=== PATIENT | male | born 1955 | race Caucasian/White ===

== ENCOUNTER 2017-06-07 16:50 | Emergency (ER) | payer OTHER ==
[~2017-06-07] VITALS: Ht 180.3 cm; Wt 85.3 kg
--- NOTE | 2017-06-07 17:00 | NUR ---
[facility]RA FROM HOME DT TO UNWITNESED SYNCOPAL EPISODE. PATIENT IS AAO4, APPEARS IN MILD DSITRESS, SATING 80S ON ROOM AIR,. PATIENT'S TEMP IS 99.2. PATIENT DENIES HITTING HEAD. NO OTHER COMPLAINT AT THIS TIME,. GOWNED PT AND CONNCTED PT TO TELE MONITOR,.
--- NOTE | 2017-06-07 17:20 | NUR ---
MD CORRALES,AN AT BS
--- NOTE | 2017-06-07 17:38 | NUR ---
EKG ON GOING
--- NOTE | 2017-06-07 17:38 | NUR ---
MEDICAL [employer]URANCE CODING SPECIALIST AT
[2017-06-07 17:50] LABS: BASOPHILS % (AUTO) 0.5 % (0.0-2.0); EOSINOPHILS # (AUTO) 0.3 /CMM (0.0-0.7); EOSINOPHILS % (AUTO) 2.8 % (0.0-6.0); HEMATOCRIT 34 % (39-51); HEMOGLOBIN 11.1 g/dL (13.5-17.5); LYMPHOCYTES # (AUTO) 0.8 /CMM (0.8-4.8); LYMPHOCYTES % (AUTO) 8.9 % (20.0-44.0); MEAN CORPUSCULAR HEMOGLOBIN 32 PG (26.0-33.0); MEAN CORPUSCULAR HGB CONC 32 g/dl (31.0-36.0); MEAN CORPUSCULAR VOLUME 98 fL (80-96); MONOCYTES # (AUTO) 0.6 /CMM (0.1-1.30); MONOCYTES % (AUTO) 6.8 % (2.0-12.0); NEUTROPHILS # (AUTO) 7.6 /CMM (1.8-8.9); PLATELET COUNT (AUTO) 124 /CMM (150-450); RDW COEFFICIENT OF VARIATION 21.3 (11.5-15.0); RED BLOOD CELL COUNT(AUTO) 3.48 MIL/uL (4.5-6.0); WHITE BLOOD COUNT (AUTO) 9.3 K/uL (4.3-11.0)
[2017-06-07 18:00] LABS: CALCIUM, SERUM 8.7 mg/dL (8.5-10.1); CREATININE 6.9 mg/dL (0.6-1.3); POTASSIUM 4.7 mmol/L (3.5-5.1)
--- NOTE | 2017-06-07 18:02 | NUR ---
PATIENT IS ANURIC DT HD
[2017-06-07 18:03] LABS: INR 1.11 (0.87-1.13); PROTHROMBIN TIME 11.5 SECS (9.5-12.7)
[2017-06-07 18:06] LABS: ALBUMIN 1.9 g/dL (3.4-5.0); BILIRUBIN,DIRECT 0.4 mg/dL (0.0-0.2); BILIRUBIN,TOTAL 0.9 mg/dL (0.2-1.0); TOTAL PROTEIN, SERUM 8.7 g/dL (6.4-8.2)
[2017-06-07 18:07] LABS: TROPONIN I 0.025 ng/mL (0.00-0.056)
--- NOTE | 2017-06-07 19:10 | NUR ---
REPORT GIVEN TO PENNY SÁNCHEZ FOR PETTY
--- NOTE | 2017-06-07 19:20 | NUR ---
RECEIVED PATIENT IN BED, LETHARGIC, RESPONSIVE TO VERBAL AND TACTILE STIMULI AND FOLLOW SIMPLE COMMANDS. SINUS TACHY ON THE MONITOR AT 112. CONTINUOUS VS AND POX MONITORING.
--- NOTE | 2017-06-07 20:00 | NUR ---
DR CASANOVA AT BEDSIDE TALKING TO THE PATIENT AND FAMILY.
[2017-06-07] MEDS ORDERED: IOHEXOL-300 100 ML VIAL IV ONE (20:12)
[2017-06-07] MEDS ORDERED: IV NS 0.9% 250 ML IV ONE (20:12)
--- NOTE | 2017-06-07 21:00 | NUR ---
patient had a 1 bowel movement at this time, perineal care provided.
--- NOTE | 2017-06-07 21:20 | NUR ---
CALLED [facility].
--- NOTE | 2017-06-07 21:38 | NUR ---
[facility] CALLED WITH TRANSFER INFO - TRANSFER TO [facility] - ACCEPTING DR RIVERS - REPORT #:
--- NOTE | 2017-06-07 21:56 | NUR ---
Report given to Rosita FRANCIS at [facility] for toby.
[2017-06-07 22:10] LABS: SERUM AMMONIA 30 umol/L (11-32)
[2017-06-07 22:13] LABS: CREATINE KINASE, TOTAL 46 U/L (39-308)
[2017-06-07 22:56] VITALS: BP 132/70
--- NOTE | 2017-06-07 22:57 | NUR ---
Endorsed care to [facility] staff. Patient remained responsive. vss. nad noted. at bedside.
== END 2017-06-07 22:58 | disposition short-term general hospital (02) ==
LOC: ER 16:51
DX: R55 Syncope and collapse (principal); E11.9 Type 2 diabetes mellitus without complications; I10 Essential (primary) hypertension; I25.10 Atherosclerotic heart disease of native coronary artery without angina pectoris; I31.3 Pericardial effusion (noninflammatory); I70.0 Atherosclerosis of aorta; J90 Pleural effusion, not elsewhere classified; K21.9 Gastro-esophageal reflux disease without esophagitis; Z90.49 Acquired absence of other specified parts of digestive tract; Z93.3 Colostomy status; Z99.2 Dependence on renal dialysis
CPT/HCPCS: 36415; 70450; 71010; 72125; 74160; 80048; 80076; 82140; 82550; 82962; 83605; 84484; 85025; 85730; 93005; 99285; A4606; G0480; J7050; Q9967; Z7610

== ENCOUNTER 2017-11-12 05:48 | Inpatient (IN) | payer OTHER ==
[2017-11-12] MEDS ORDERED: IV NS 0.9% 1,000 ML BAG IV ONE (06:00)
[2017-11-12] MEDS ORDERED: ACETAMINOPHEN 650 MG/SUPP.RECT RC ONE ×2 (06:00→07:17)
[2017-11-12] MEDS ORDERED: CEFEPIME 1 GM in IV D5W 50 ML IV ONE (06:00)
[2017-11-12] MEDS ORDERED: VANCOMYCIN 1 GM in IV D5W 250 ML IV ONE (06:00)
[2017-11-12] MEDS ORDERED: PROPOFOL 100 ML ONE (06:22)
[2017-11-12] MEDS ORDERED: SUCCINYLCHOLINE CHLORIDE 20 MG/ML VIAL IV ONE ×2 (06:30→11:46)
[2017-11-12] MEDS ORDERED: PROPOFOL 100 ML IV PRN (06:30)
[2017-11-12] MEDS ORDERED: ETOMIDATE 2 MG/ML VIAL IV ONE ×2 (06:30→11:46)
[2017-11-12] MEDS ORDERED: MIDAZOLAM HCL 5 MG/5ML VIAL ONE ×2 (06:30→07:40)
[2017-11-12] MEDS ORDERED: MIDAZOLAM HCL 100 MG in IV NS 0.9% 80 ML IV PRN (07:00)
[2017-11-12] MEDS ORDERED: MIDAZOLAM HCL 5 MG/5ML VIAL IV ONE ×2 (07:00→08:00)
[2017-11-12] MEDS ORDERED: ACETAMINOPHEN 120 MG/SUPP.RECT RC ONE ×2 (07:18→07:19)
[2017-11-12] MEDS: IV NS 0.9% 1,000 ML IV PRN ×2 (10:00→22:04)
[2017-11-12] MEDS ORDERED: MAG HYDROX/AL HYDROX/SIMETH 30 ML UDC PO PRN (10:00)
[2017-11-12] MEDS ORDERED: ONDANSETRON HCL/PF 4 MG/2 ML VIAL IVP PRN (10:00)
[2017-11-12] MEDS ORDERED: HYDROCODONE/APAP 5/325MG 1 EACH TABLET PO PRN (10:00)
[2017-11-12] MEDS ORDERED: MAGNESIUM HYDROXIDE 30 ML UDC PO PRN (10:00)
[2017-11-12] MEDS ORDERED: ACETAMINOPHEN 325 MG TABLET PO PRN (10:00)
[2017-11-12] MEDS ORDERED: FEE PK DOSING 1 MIN EA MC ONE (10:16)
[2017-11-12] MEDS: NOREPINEPHRINE 16 MG in IV D5W 500 ML IV PRN (11:50)
[2017-11-12] MEDS: PROPOFOL 100 ML IV PRN ×2 (11:51→22:04)
[2017-11-12] MEDS ORDERED: HYDR5TAB PO (12:08)
[2017-11-12] MEDS ORDERED: HYDR10TA PO (12:08)
[2017-11-12] MEDS ORDERED: ALLO100T PO (12:08)
[2017-11-12] MEDS ORDERED: NORT25CA PO (12:08)
[2017-11-12] MEDS: PIPERACILLIN /TAZOBACTAM 2.25 G in IV NS 0.9% 50 ML IV SCH ×2 (16:52→22:04)
[2017-11-13] MEDS: PROPOFOL 100 ML IV PRN ×3 (05:18→19:29)
[2017-11-13] MEDS ORDERED: CEFEPIME 1 GM in IV D5W 50 ML IV SCH (06:00)
[2017-11-13] MEDS: PIPERACILLIN /TAZOBACTAM 2.25 G in IV NS 0.9% 50 ML IV SCH ×3 (06:00→22:13)
[2017-11-13] MEDS: SILVER SULFADIAZINE CREAM 25 GM TUBE TP SCH (10:58)
[2017-11-13] MEDS: NOREPINEPHRINE 16 MG in IV D5W 500 ML IV PRN (10:58)
[2017-11-13] MEDS: IV NS 0.9% 1,000 ML IV PRN (12:41)
[2017-11-13] MEDS ORDERED: VANCOMYCIN 1 GM in IV NS 0.9% 250 ML IV ONE (17:00)
[2017-11-13] MEDS: Z GUARD REMEDY 2 OZ OINT TP PRN (17:25)
[2017-11-13] MEDS: HYDROCORTISONE 5 MG TABLET PO SCH (17:37)
[2017-11-13] MEDS: NORTRIPTYLINE HCL 25 MG CAPSULE PO SCH (21:03)
[2017-11-13] MEDS: MUPIROCIN OINT 2% 22 GM TUBE SCH (21:03)
[2017-11-14] MEDS: IV NS 0.9% 1,000 ML IV PRN ×2 (04:33→17:11)
[2017-11-14] MEDS: PROPOFOL 100 ML IV PRN ×2 (04:34→15:14)
[2017-11-14] MEDS: PIPERACILLIN /TAZOBACTAM 2.25 G in IV NS 0.9% 50 ML IV SCH ×3 (06:03→22:00)
[2017-11-14] MEDS: ALLOPURINOL 100 MG TABLET PO SCH (08:29)
[2017-11-14] MEDS: SILVER SULFADIAZINE CREAM 25 GM TUBE TP SCH (08:30)
[2017-11-14] MEDS: MUPIROCIN OINT 2% 22 GM TUBE SCH (08:30)
[2017-11-14] MEDS ORDERED: HYDROCORTISONE 10 MG TABLET PO SCH (09:00)
[2017-11-14] MEDS: HYDROCORTISONE 5 MG TABLET PO SCH ×3 (10:49→17:10)
[2017-11-14] MEDS ORDERED: DESMOPRESSIN IV ONE (13:00)
[2017-11-14] MEDS ORDERED: NS 0.9% IV ONE (13:00)
[2017-11-14] MEDS: NOREPINEPHRINE 16 MG in IV D5W 500 ML IV PRN (13:22)
[2017-11-14] MEDS: NORTRIPTYLINE HCL 25 MG CAPSULE PO SCH (22:00)
[2017-11-15] MEDS: PROPOFOL 100 ML IV PRN (03:38)
[2017-11-15] MEDS: IV NS 0.9% 1,000 ML IV PRN ×2 (05:17→23:56)
[2017-11-15] MEDS: PIPERACILLIN /TAZOBACTAM 2.25 G in IV NS 0.9% 50 ML IV SCH ×3 (06:01→22:29)
[2017-11-15] MEDS: HYDROCORTISONE 5 MG TABLET PO SCH ×2 (08:52→18:05)
[2017-11-15] MEDS: MUPIROCIN OINT 2% 22 GM TUBE TP SCH ×2 (08:55→15:53)
[2017-11-15] MEDS: ALLOPURINOL 100 MG TABLET PO SCH (08:55)
[2017-11-15] MEDS: SILVER SULFADIAZINE CREAM 25 GM TUBE TP SCH (08:55)
[2017-11-15] MEDS ORDERED: EPOETIN ALFA (10,000 UNIT) 10,000 UNIT/ML VIAL SQ ONE (09:00)
[2017-11-15] MEDS: VANCOMYCIN 500 MG in IV D5W 100 ML IV PRN (21:13)
[2017-11-15] MEDS: NORTRIPTYLINE HCL 25 MG CAPSULE PO SCH (22:29)
[2017-11-15] MEDS: NOREPINEPHRINE 16 MG in IV D5W 500 ML IV PRN (23:56)
[2017-11-16] MEDS: MUPIROCIN OINT 2% 22 GM TUBE TP SCH ×3 (03:37→15:07)
[2017-11-16] MEDS: PIPERACILLIN /TAZOBACTAM 2.25 G in IV NS 0.9% 50 ML IV SCH ×2 (06:02→15:07)
[2017-11-16] MEDS: IV NS 0.9% 1,000 ML IV PRN ×2 (08:20→17:49)
[2017-11-16] MEDS: HYDROCORTISONE 5 MG TABLET PO SCH ×2 (08:20→17:47)
[2017-11-16] MEDS: ALLOPURINOL 100 MG TABLET PO SCH (08:20)
[2017-11-16] MEDS: SILVER SULFADIAZINE CREAM 25 GM TUBE TP SCH (08:21)
[2017-11-16] MEDS: PROPOFOL 100 ML IV PRN (18:20)
[2017-11-16] MEDS: NOREPINEPHRINE 16 MG in IV D5W 500 ML IV PRN (19:14)
[2017-11-16] MEDS ORDERED: MEROPENEM 1 G in IV NS 0.9% 100 ML IV SCH (21:00)
[2017-11-16] MEDS: NORTRIPTYLINE HCL 25 MG CAPSULE PO SCH (21:27)
[2017-11-16] MEDS ORDERED: MEROPENEM 500 MG VIAL IV ONE (21:35)
[2017-11-16] MEDS: MEROPENEM 500 MG in IV NS 0.9% 50 ML IV SCH (21:39)
[2017-11-17] MEDS: MUPIROCIN OINT 2% 22 GM TUBE TP SCH ×3 (04:04→14:47)
[2017-11-17] MEDS: PROPOFOL 100 ML IV PRN ×5 (05:14→22:28)
[2017-11-17] MEDS: SILVER SULFADIAZINE CREAM 25 GM TUBE TP SCH (08:35)
[2017-11-17] MEDS: ALLOPURINOL 100 MG TABLET PO SCH (10:27)
[2017-11-17] MEDS: HYDROCORTISONE 5 MG TABLET PO SCH ×2 (10:27→17:20)
[2017-11-17] MEDS: MEROPENEM 500 MG in IV NS 0.9% 50 ML IV SCH ×2 (10:41→21:00)
[2017-11-17] MEDS: IV NS 0.9% 1,000 ML IV PRN (13:17)
[2017-11-17] MEDS: VANCOMYCIN 500 MG in IV D5W 100 ML IV PRN (14:44)
[2017-11-17] MEDS: NOREPINEPHRINE 16 MG in IV D5W 500 ML IV PRN (18:14)
[2017-11-17] MEDS: NORTRIPTYLINE HCL 25 MG CAPSULE PO SCH (21:00)
[2017-11-18] MEDS: MUPIROCIN OINT 2% 22 GM TUBE TP SCH ×3 (04:00→16:21)
[2017-11-18] MEDS: PROPOFOL 100 ML IV PRN (06:42)
[2017-11-18] MEDS: HYDROCORTISONE 5 MG TABLET PO SCH ×2 (08:57→17:17)
[2017-11-18] MEDS: MEROPENEM 500 MG in IV NS 0.9% 50 ML IV SCH ×2 (08:57→21:45)
[2017-11-18] MEDS: ALLOPURINOL 100 MG TABLET PO SCH (08:57)
[2017-11-18] MEDS: SILVER SULFADIAZINE CREAM 25 GM TUBE TP SCH (08:57)
[2017-11-18] MEDS: IV NS 0.9% 1,000 ML IV PRN (10:31)
[2017-11-18] MEDS ORDERED: Magnesium 1GM/D5W 100ML PREMIX 100 ML IV SCH (13:30)
[2017-11-18] MEDS: NOREPINEPHRINE 16 MG in IV D5W 500 ML IV PRN (17:18)
[2017-11-18] MEDS: NORTRIPTYLINE HCL 25 MG CAPSULE PO SCH (21:46)
[2017-11-19] MEDS: MUPIROCIN OINT 2% 22 GM TUBE TP SCH ×3 (04:12→16:03)
[2017-11-19] MEDS: IV NS 0.9% 1,000 ML IV PRN (07:47)
[2017-11-19] MEDS: HYDROCORTISONE 5 MG TABLET PO SCH ×2 (08:41→17:17)
[2017-11-19] MEDS: ALLOPURINOL 100 MG TABLET PO SCH (08:41)
[2017-11-19] MEDS: MEROPENEM 500 MG in IV NS 0.9% 50 ML IV SCH ×2 (08:41→21:06)
[2017-11-19] MEDS: SILVER SULFADIAZINE CREAM 25 GM TUBE TP SCH (08:43)
[2017-11-19] MEDS: RENAL NOVASOURCE 1,000 ML BOTTLE GT PRN (15:30)
[2017-11-19] MEDS: NOREPINEPHRINE 16 MG in IV D5W 500 ML IV PRN (16:10)
[2017-11-19] MEDS: NORTRIPTYLINE HCL 25 MG CAPSULE PO SCH (21:06)
[2017-11-20] MEDS: IV NS 0.9% 1,000 ML IV PRN ×2 (02:01→22:00)
[2017-11-20] MEDS: MUPIROCIN OINT 2% 22 GM TUBE TP SCH ×3 (03:45→15:03)
[2017-11-20] MEDS: ALLOPURINOL 100 MG TABLET PO SCH (08:23)
[2017-11-20] MEDS: MEROPENEM 500 MG in IV NS 0.9% 50 ML IV SCH ×2 (08:23→20:29)
[2017-11-20] MEDS: HYDROCORTISONE 5 MG TABLET PO SCH ×2 (08:23→17:27)
[2017-11-20] MEDS: SILVER SULFADIAZINE CREAM 25 GM TUBE TP SCH (08:24)
[2017-11-20] MEDS ORDERED: PANTOPRAZOLE 40 MG VIAL IV SCH (10:00)
[2017-11-20] MEDS: PANTOPRAZOLE 80 MG in IV NS 0.9% 500 ML IV PRN (14:53)
[2017-11-20] MEDS: NOREPINEPHRINE 16 MG in IV D5W 500 ML IV PRN (17:26)
[2017-11-21] MEDS: PANTOPRAZOLE 80 MG in IV NS 0.9% 500 ML IV PRN ×3 (00:53→21:20)
[2017-11-21] MEDS: MUPIROCIN OINT 2% 22 GM TUBE TP SCH ×3 (03:19→15:22)
[2017-11-21] MEDS: ALLOPURINOL 100 MG TABLET PO SCH (08:13)
[2017-11-21] MEDS: MEROPENEM 500 MG in IV NS 0.9% 50 ML IV SCH ×2 (08:13→20:23)
[2017-11-21] MEDS: HYDROCORTISONE 5 MG TABLET PO SCH ×2 (08:13→17:27)
[2017-11-21] MEDS: SILVER SULFADIAZINE CREAM 25 GM TUBE TP SCH (08:14)
[2017-11-21] MEDS: IV NS 0.9% 1,000 ML IV PRN (17:28)
[2017-11-21] MEDS: NOREPINEPHRINE 16 MG in IV D5W 500 ML IV PRN (17:28)
[2017-11-21] MEDS: VANCOMYCIN 500 MG in IV D5W 100 ML IV PRN (18:56)
[2017-11-22] MEDS: MUPIROCIN OINT 2% 22 GM TUBE TP SCH ×3 (03:09→15:15)
[2017-11-22] MEDS: HYDROCORTISONE 5 MG TABLET PO SCH ×2 (08:16→17:02)
[2017-11-22] MEDS: ALLOPURINOL 100 MG TABLET PO SCH (08:16)
[2017-11-22] MEDS: MEROPENEM 500 MG in IV NS 0.9% 50 ML IV SCH ×2 (08:16→20:23)
[2017-11-22] MEDS: SILVER SULFADIAZINE CREAM 25 GM TUBE TP SCH (08:17)
[2017-11-22] MEDS: PANTOPRAZOLE 80 MG in IV NS 0.9% 500 ML IV PRN (08:17)
[2017-11-22] MEDS ORDERED: DC PROPOFOL WHEN EXTUBATED XX PRN (09:00)
[2017-11-22] MEDS: IV NS 0.9% 1,000 ML IV PRN (15:54)
[2017-11-22] MEDS: PANTOPRAZOLE 40 MG VIAL IV SCH (17:21)
[2017-11-22] MEDS: NOREPINEPHRINE 16 MG in IV D5W 500 ML IV PRN (20:28)
[2017-11-23] MEDS: MUPIROCIN OINT 2% 22 GM TUBE TP SCH ×3 (04:23→15:21)
[2017-11-23] MEDS: ALLOPURINOL 100 MG TABLET PO SCH (08:04)
[2017-11-23] MEDS: HYDROCORTISONE 5 MG TABLET PO SCH ×2 (08:04→17:13)
[2017-11-23] MEDS: SILVER SULFADIAZINE CREAM 25 GM TUBE TP SCH (08:27)
[2017-11-23] MEDS: MEROPENEM 500 MG in IV NS 0.9% 50 ML IV SCH ×2 (10:11→21:50)
[2017-11-23] MEDS: VANCOMYCIN 500 MG in IV D5W 100 ML IV PRN (10:44)
[2017-11-23] MEDS: PANTOPRAZOLE 40 MG VIAL IV SCH (16:27)
[2017-11-23] MEDS: NOREPINEPHRINE 16 MG in IV D5W 500 ML IV PRN (16:28)
[2017-11-23] MEDS ORDERED: DEXTROSE 50%-WATER 50 ML DISP.SYRIN IV PRN (16:30)
[2017-11-23] MEDS: BLOOD SUGAR DIAGNOSTIC 1 EACH STRIP IN SCH (17:19)
[2017-11-24] MEDS ORDERED: PHENYLEPHRINE 10 MG/ML VIAL ONE (00:26)
[2017-11-24] MEDS ORDERED: PHENYLEPHRINE 80 MG in IV D5W 250 ML IV PRN (00:30)
[2017-11-24] MEDS: PHENYLEPHRINE 80 MG in IV D5W 250 ML IV PRN ×3 (00:37→17:50)
[2017-11-24] MEDS: BLOOD SUGAR DIAGNOSTIC 1 EACH STRIP IN SCH ×5 (00:45→23:45)
[2017-11-24] MEDS ORDERED: NOREPINEPHRINE 4 MG/4 ML AMPUL IV ONE (01:09)
[2017-11-24] MEDS: PROPOFOL 100 ML IV PRN ×5 (01:56→22:18)
[2017-11-24] MEDS: NOREPINEPHRINE 16 MG in IV D5W 500 ML IV PRN ×4 (01:58→22:35)
[2017-11-24] MEDS: MUPIROCIN OINT 2% 22 GM TUBE TP SCH ×3 (05:53→16:21)
[2017-11-24] MEDS: MEROPENEM 500 MG in IV NS 0.9% 50 ML IV SCH ×2 (08:26→20:42)
[2017-11-24] MEDS ORDERED: ETOMIDATE 2 MG/ML VIAL IV ONE (08:36)
[2017-11-24] MEDS ORDERED: SUCCINYLCHOLINE CHLORIDE 20 MG/ML VIAL IV ONE (08:36)
[2017-11-24] MEDS: HYDROCORTISONE 5 MG TABLET PO SCH (09:00)
[2017-11-24] MEDS: ALLOPURINOL 100 MG TABLET PO SCH (09:00)
[2017-11-24] MEDS: SILVER SULFADIAZINE CREAM 25 GM TUBE TP SCH (09:25)
[2017-11-24] MEDS: POTASSIUM CL. PREMIX PERIPHER. 50 ML IV SCH ×3 (11:11→13:32)
[2017-11-24] MEDS: ALBUMIN 25% 25 GM in PREMIX 1 EA IV PRN (12:18)
[2017-11-24] MEDS: PANTOPRAZOLE 40 MG VIAL IV SCH (16:50)
[2017-11-24] MEDS: HYDROCORTISONE SOD SUCCINATE 100 MG/2 ML VIAL IV SCH (16:51)
[2017-11-24] MEDS ORDERED: HYDROCORTISONE SOD SUCCINATE 100 MG/2 ML VIAL IV SCH (17:00)
[2017-11-24] MEDS: IV NS 0.9% 250 ML IV PRN (22:34)
[2017-11-25] MEDS: PROPOFOL 100 ML IV PRN ×4 (02:55→22:28)
[2017-11-25] MEDS: MUPIROCIN OINT 2% 22 GM TUBE TP SCH ×3 (03:30→16:24)
[2017-11-25] MEDS: BLOOD SUGAR DIAGNOSTIC 1 EACH STRIP IN SCH ×4 (06:35→23:28)
[2017-11-25] MEDS: RENAL NOVASOURCE 1,000 ML BOTTLE GT PRN (07:42)
[2017-11-25] MEDS: NOREPINEPHRINE 16 MG in IV D5W 500 ML IV PRN ×2 (07:42→21:41)
[2017-11-25] MEDS: ALLOPURINOL 100 MG TABLET PO SCH (07:53)
[2017-11-25] MEDS: SILVER SULFADIAZINE CREAM 25 GM TUBE TP SCH (07:53)
[2017-11-25] MEDS: MEROPENEM 500 MG in IV NS 0.9% 50 ML IV SCH ×2 (07:53→20:41)
[2017-11-25] MEDS: HYDROCORTISONE SOD SUCCINATE 100 MG/2 ML VIAL IV SCH ×3 (07:53→16:23)
[2017-11-25] MEDS: PANTOPRAZOLE 40 MG VIAL IV SCH (16:23)
[2017-11-25] MEDS: VANCOMYCIN 500 MG in IV D5W 100 ML IV PRN (16:37)
[2017-11-25] MEDS: INSULIN REGULAR, HUMAN 100 UNIT/ML 3 ML VIAL SQ PRN ×2 (17:33→23:32)
[2017-11-26] MEDS: MUPIROCIN OINT 2% 22 GM TUBE TP SCH ×3 (02:40→14:31)
[2017-11-26] MEDS: PROPOFOL 100 ML IV PRN ×3 (05:48→16:40)
[2017-11-26] MEDS: BLOOD SUGAR DIAGNOSTIC 1 EACH STRIP IN SCH ×4 (05:53→23:53)
[2017-11-26] MEDS: INSULIN REGULAR, HUMAN 100 UNIT/ML 3 ML VIAL SQ PRN ×4 (06:05→23:50)
[2017-11-26] MEDS: MEROPENEM 500 MG in IV NS 0.9% 50 ML IV SCH ×2 (08:40→21:34)
[2017-11-26] MEDS: ALLOPURINOL 100 MG TABLET PO SCH (08:40)
[2017-11-26] MEDS: HYDROCORTISONE SOD SUCCINATE 100 MG/2 ML VIAL IV SCH ×3 (08:41→16:33)
[2017-11-26] MEDS: SILVER SULFADIAZINE CREAM 25 GM TUBE TP SCH (08:41)
[2017-11-26] MEDS: NOREPINEPHRINE 16 MG in IV D5W 500 ML IV PRN (12:38)
[2017-11-26] MEDS: RENAL NOVASOURCE 1,000 ML BOTTLE GT PRN (14:36)
[2017-11-26] MEDS: PANTOPRAZOLE 40 MG VIAL IV SCH (16:33)
[2017-11-27] MEDS ORDERED: AMIKACIN 400 MG in IV NS 0.9% 100 ML IV ONE (00:30)
[2017-11-27] MEDS ORDERED: AMIKACIN 250 MG/ML VIAL ONE (01:47)
[2017-11-27] MEDS: MUPIROCIN OINT 2% 22 GM TUBE TP SCH ×3 (04:08→15:38)
[2017-11-27] MEDS: PROPOFOL 100 ML IV PRN ×3 (04:09→12:38)
[2017-11-27] MEDS: INSULIN REGULAR, HUMAN 100 UNIT/ML 3 ML VIAL SQ PRN (05:35)
[2017-11-27] MEDS: BLOOD SUGAR DIAGNOSTIC 1 EACH STRIP IN SCH ×3 (06:03→17:05)
[2017-11-27] MEDS: IV NS 0.9% 250 ML IV PRN (06:46)
[2017-11-27] MEDS ORDERED: FEE PK DOSING 1 MIN EA MC ONE (07:39)
[2017-11-27] MEDS ORDERED: AMIKACIN 400 MG in IV NS 0.9% 100 ML IV PRN (08:00)
[2017-11-27] MEDS: SILVER SULFADIAZINE CREAM 25 GM TUBE TP SCH (08:38)
[2017-11-27] MEDS ORDERED: DOSING PER PHARMACY-AMIKACI IV XX PRN (09:00)
[2017-11-27] MEDS ORDERED: Magnesium 1GM/D5W 100ML PREMIX 100 ML IV SCH (09:00)
[2017-11-27] MEDS ORDERED: AMIKACIN 400 MG in IV NS 0.9% 100 ML IV SCH (09:00)
[2017-11-27] MEDS: ALLOPURINOL 100 MG TABLET PO SCH (10:08)
[2017-11-27] MEDS: HYDROCORTISONE SOD SUCCINATE 100 MG/2 ML VIAL IV SCH ×3 (10:08→17:05)
[2017-11-27] MEDS ORDERED: EPOETIN ALFA (10,000 UNIT) 10,000 UNIT/ML VIAL SQ ONE (12:00)
[2017-11-27] MEDS: NOREPINEPHRINE 16 MG in IV D5W 500 ML IV PRN (12:27)
[2017-11-27] MEDS: PANTOPRAZOLE 40 MG VIAL IV SCH (17:05)
[2017-11-27] MEDS: RENAL NOVASOURCE 1,000 ML BOTTLE GT PRN (17:21)
[2017-11-27] MEDS: SUCRALFATE 1 G/10 ML UDC GT SCH (22:02)
[2017-11-28] MEDS: INSULIN REGULAR, HUMAN 100 UNIT/ML 3 ML VIAL SQ PRN ×5 (00:11→23:30)
[2017-11-28] MEDS: BLOOD SUGAR DIAGNOSTIC 1 EACH STRIP IN SCH ×5 (00:12→23:25)
[2017-11-28] MEDS: MUPIROCIN OINT 2% 22 GM TUBE TP SCH ×3 (05:21→17:57)
[2017-11-28] MEDS: PROPOFOL 100 ML IV PRN ×2 (06:40→23:26)
[2017-11-28] MEDS: IV NS 0.9% 250 ML IV PRN ×2 (06:41→23:26)
[2017-11-28] MEDS: HYDROCORTISONE SOD SUCCINATE 100 MG/2 ML VIAL IV SCH ×3 (09:46→17:57)
[2017-11-28] MEDS: PANTOPRAZOLE 40 MG VIAL IV SCH ×2 (09:46→17:57)
[2017-11-28] MEDS: ALLOPURINOL 100 MG TABLET PO SCH (09:46)
[2017-11-28] MEDS: SILVER SULFADIAZINE CREAM 25 GM TUBE TP SCH (09:47)
[2017-11-28] MEDS: SUCRALFATE 1 G/10 ML UDC GT SCH ×4 (10:05→22:57)
[2017-11-28] MEDS ORDERED: METOCLOPRAMIDE HCL 10 MG TABLET PO PRN (17:00)
[2017-11-28] MEDS: METOCLOPRAMIDE HCL 10 MG TABLET PO SCH ×2 (18:08→23:26)
[2017-11-28] MEDS: NOREPINEPHRINE 16 MG in IV D5W 500 ML IV PRN (18:35)
[2017-11-29] MEDS: MUPIROCIN OINT 2% 22 GM TUBE TP SCH ×3 (03:45→16:33)
[2017-11-29] MEDS: METOCLOPRAMIDE HCL 10 MG TABLET PO SCH ×3 (06:00→17:48)
[2017-11-29] MEDS: BLOOD SUGAR DIAGNOSTIC 1 EACH STRIP IN SCH ×3 (06:52→17:42)
[2017-11-29] MEDS: SUCRALFATE 1 G/10 ML UDC GT SCH ×4 (06:53→21:02)
[2017-11-29] MEDS: PROPOFOL 100 ML IV PRN ×2 (08:19→09:50)
[2017-11-29] MEDS: SILVER SULFADIAZINE CREAM 25 GM TUBE TP SCH (09:26)
[2017-11-29] MEDS: HYDROCORTISONE SOD SUCCINATE 100 MG/2 ML VIAL IV SCH ×3 (09:47→17:47)
[2017-11-29] MEDS: PANTOPRAZOLE 40 MG VIAL IV SCH ×2 (09:47→17:47)
[2017-11-29] MEDS: ALLOPURINOL 100 MG TABLET PO SCH (09:49)
[2017-11-29] MEDS: NEPRO 1,000 ML BOTTLE GT PRN (17:26)
[2017-11-29] MEDS: NOREPINEPHRINE 16 MG in IV D5W 500 ML IV PRN (17:43)
[2017-11-29] MEDS: VANCOMYCIN 500 MG in IV D5W 100 ML IV PRN (17:54)
[2017-11-29] MEDS: IV NS 0.9% 250 ML IV PRN (20:59)
[2017-11-30] MEDS: BLOOD SUGAR DIAGNOSTIC 1 EACH STRIP IN SCH ×5 (00:38→23:39)
[2017-11-30] MEDS: SILVER SULFADIAZINE CREAM 25 GM TUBE TP SCH (00:40)
[2017-11-30] MEDS: MUPIROCIN OINT 2% 22 GM TUBE TP SCH ×3 (00:40→16:01)
[2017-11-30] MEDS: PROPOFOL 100 ML IV PRN ×4 (02:31→23:41)
[2017-11-30] MEDS: METOCLOPRAMIDE HCL 10 MG TABLET PO SCH ×5 (06:00→23:45)
[2017-11-30] MEDS: SUCRALFATE 1 G/10 ML UDC GT SCH ×4 (06:35→21:49)
[2017-11-30] MEDS: INSULIN REGULAR, HUMAN 100 UNIT/ML 3 ML VIAL SQ PRN ×4 (06:38→23:42)
[2017-11-30] MEDS: ALLOPURINOL 100 MG TABLET PO SCH (09:00)
[2017-11-30] MEDS: PANTOPRAZOLE 40 MG VIAL IV SCH ×2 (09:14→16:17)
[2017-11-30] MEDS: HYDROCORTISONE SOD SUCCINATE 100 MG/2 ML VIAL IV SCH ×3 (09:14→16:17)
[2017-11-30] MEDS: DOXYCYCLINE 100 MG in IV NS 0.9% 100 ML IV SCH ×2 (10:06→20:30)
[2017-11-30] MEDS: LORAZEPAM INJ 2 MG/ML VIAL IV PRN (14:48)
[2017-11-30] MEDS ORDERED: LIDOCAINE 2% JEL UROJET 10 ML MM ONE (15:00)
[2017-11-30] MEDS ORDERED: MORPHINE SULFATE INJ 4 MG/ML DISP.SYRIN IV ONE (15:00)
[2017-11-30] MEDS: NEPRO 1,000 ML BOTTLE GT PRN (16:17)
[2017-11-30] MEDS: IV NS 0.9% 250 ML IV PRN (23:46)
[2017-12-01] MEDS: MUPIROCIN OINT 2% 22 GM TUBE TP SCH ×3 (04:04→16:59)
[2017-12-01] MEDS: BLOOD SUGAR DIAGNOSTIC 1 EACH STRIP IN SCH ×3 (05:53→18:32)
[2017-12-01] MEDS: METOCLOPRAMIDE HCL 10 MG TABLET PO SCH ×3 (05:55→17:40)
[2017-12-01] MEDS: INSULIN REGULAR, HUMAN 100 UNIT/ML 3 ML VIAL SQ PRN ×3 (05:59→18:32)
[2017-12-01] MEDS: SUCRALFATE 1 G/10 ML UDC GT SCH ×4 (06:30→20:56)
[2017-12-01] MEDS: PANTOPRAZOLE 40 MG VIAL IV SCH ×2 (08:23→17:40)
[2017-12-01] MEDS: HYDROCORTISONE SOD SUCCINATE 100 MG/2 ML VIAL IV SCH ×3 (08:24→17:40)
[2017-12-01] MEDS: ALLOPURINOL 100 MG TABLET PO SCH (08:24)
[2017-12-01] MEDS: SILVER SULFADIAZINE CREAM 25 GM TUBE TP SCH (08:25)
[2017-12-01] MEDS: PROPOFOL 100 ML IV PRN (10:07)
[2017-12-01] MEDS: DOXYCYCLINE 100 MG in IV NS 0.9% 100 ML IV SCH ×2 (10:07→20:57)
[2017-12-01] MEDS: NOREPINEPHRINE 16 MG in IV D5W 500 ML IV PRN (17:48)
[2017-12-02] MEDS: METOCLOPRAMIDE HCL 10 MG TABLET PO SCH ×4 (00:12→17:20)
[2017-12-02] MEDS: IV NS 0.9% 250 ML IV PRN (00:12)
[2017-12-02] MEDS: BLOOD SUGAR DIAGNOSTIC 1 EACH STRIP IN SCH ×4 (00:12→17:20)
[2017-12-02] MEDS: LORAZEPAM INJ 2 MG/ML VIAL IV PRN (00:13)
[2017-12-02] MEDS: INSULIN REGULAR, HUMAN 100 UNIT/ML 3 ML VIAL SQ PRN ×4 (00:14→17:24)
[2017-12-02] MEDS: NEPRO 1,000 ML BOTTLE GT PRN (00:15)
[2017-12-02] MEDS ORDERED: VANCOMYCIN 1 GM in IV NS 0.9% 250 ML IV ONE (02:00)
[2017-12-02] MEDS ORDERED: VANCOMYCIN 1 GM VIAL ONE (02:42)
[2017-12-02] MEDS ORDERED: CEFEPIME 1 GM VIAL ONE (03:02)
[2017-12-02] MEDS: CEFEPIME 1 GM in IV D5W 50 ML IV SCH (03:08)
[2017-12-02] MEDS: MUPIROCIN OINT 2% 22 GM TUBE TP SCH ×4 (03:08→17:27)
[2017-12-02] MEDS ORDERED: FEE PK DOSING 1 MIN EA MC ONE (07:53)
[2017-12-02] MEDS ORDERED: VANCOMYCIN 500 MG in IV D5W 100 ML IV PRN (08:00)
[2017-12-02] MEDS: ALLOPURINOL 100 MG TABLET PO SCH (08:34)
[2017-12-02] MEDS: PANTOPRAZOLE 40 MG VIAL IV SCH ×2 (08:34→17:20)
[2017-12-02] MEDS: HYDROCORTISONE SOD SUCCINATE 100 MG/2 ML VIAL IV SCH ×3 (08:34→17:20)
[2017-12-02] MEDS: SILVER SULFADIAZINE CREAM 25 GM TUBE TP SCH (08:35)
[2017-12-02] MEDS: SUCRALFATE 1 G/10 ML UDC GT SCH ×4 (08:39→21:58)
[2017-12-02] MEDS: Z GUARD REMEDY 2 OZ OINT TP PRN (17:26)
[2017-12-03] MEDS: CEFEPIME 1 GM in IV D5W 50 ML IV SCH (00:38)
[2017-12-03] MEDS: BLOOD SUGAR DIAGNOSTIC 1 EACH STRIP IN SCH ×5 (00:38→23:51)
[2017-12-03] MEDS: METOCLOPRAMIDE HCL 10 MG TABLET PO SCH ×5 (00:39→23:52)
[2017-12-03] MEDS: INSULIN REGULAR, HUMAN 100 UNIT/ML 3 ML VIAL SQ PRN ×5 (00:42→23:51)
[2017-12-03] MEDS: NEPRO 1,000 ML BOTTLE GT PRN (05:11)
[2017-12-03] MEDS: IV NS 0.9% 250 ML IV PRN (05:12)
[2017-12-03] MEDS: MUPIROCIN OINT 2% 22 GM TUBE TP SCH ×2 (05:14→15:14)
[2017-12-03] MEDS: SUCRALFATE 1 G/10 ML UDC GT SCH ×4 (06:36→21:51)
[2017-12-03] MEDS: HYDROCORTISONE SOD SUCCINATE 100 MG/2 ML VIAL IV SCH ×3 (08:15→16:48)
[2017-12-03] MEDS: PANTOPRAZOLE 40 MG VIAL IV SCH ×2 (08:15→16:48)
[2017-12-03] MEDS: SILVER SULFADIAZINE CREAM 25 GM TUBE TP SCH (08:16)
[2017-12-03] MEDS: ALLOPURINOL 100 MG TABLET PO SCH (08:16)
[2017-12-03] MEDS: NOREPINEPHRINE 16 MG in IV D5W 500 ML IV PRN (11:39)
[2017-12-04] MEDS: CEFEPIME 1 GM in IV D5W 50 ML IV SCH (00:31)
[2017-12-04] MEDS: MUPIROCIN OINT 2% 22 GM TUBE TP SCH ×3 (03:54→16:01)
[2017-12-04] MEDS: METOCLOPRAMIDE HCL 10 MG TABLET PO SCH ×3 (05:19→17:23)
[2017-12-04] MEDS: IV NS 0.9% 250 ML IV PRN (05:20)
[2017-12-04] MEDS: INSULIN REGULAR, HUMAN 100 UNIT/ML 3 ML VIAL SQ PRN ×3 (05:32→17:24)
[2017-12-04] MEDS: BLOOD SUGAR DIAGNOSTIC 1 EACH STRIP IN SCH ×4 (05:32→23:57)
[2017-12-04] MEDS: SUCRALFATE 1 G/10 ML UDC GT SCH ×4 (08:17→23:05)
[2017-12-04] MEDS: Z GUARD REMEDY 2 OZ OINT TP PRN (08:18)
[2017-12-04] MEDS: SILVER SULFADIAZINE CREAM 25 GM TUBE TP SCH (08:18)
[2017-12-04] MEDS: ALLOPURINOL 100 MG TABLET PO SCH (08:20)
[2017-12-04] MEDS: HYDROCORTISONE SOD SUCCINATE 100 MG/2 ML VIAL IV SCH ×3 (08:24→16:39)
[2017-12-04] MEDS: PANTOPRAZOLE 40 MG VIAL IV SCH ×2 (08:24→16:39)
[2017-12-04] MEDS: NEPRO 1,000 ML BOTTLE GT PRN (13:14)
[2017-12-05] MEDS: CEFEPIME 1 GM in IV D5W 50 ML IV SCH (01:36)
[2017-12-05] MEDS: MUPIROCIN OINT 2% 22 GM TUBE TP SCH ×3 (04:34→15:15)
[2017-12-05] MEDS: METOCLOPRAMIDE HCL 10 MG TABLET PO SCH ×5 (05:09→23:23)
[2017-12-05] MEDS: BLOOD SUGAR DIAGNOSTIC 1 EACH STRIP IN SCH ×4 (05:44→23:23)
[2017-12-05] MEDS: SUCRALFATE 1 G/10 ML UDC GT SCH ×4 (07:30→20:58)
[2017-12-05] MEDS: ALLOPURINOL 100 MG TABLET PO SCH (09:00)
[2017-12-05] MEDS: HYDROCORTISONE SOD SUCCINATE 100 MG/2 ML VIAL IV SCH ×3 (09:16→17:39)
[2017-12-05] MEDS: PANTOPRAZOLE 40 MG VIAL IV SCH ×2 (09:16→17:39)
[2017-12-05] MEDS: SILVER SULFADIAZINE CREAM 25 GM TUBE TP SCH (09:17)
[2017-12-05] MEDS: ALBUMIN 25% 25 GM in PREMIX 1 EA IV PRN (10:39)
[2017-12-05] MEDS: NOREPINEPHRINE 16 MG in IV D5W 500 ML IV PRN (10:58)
[2017-12-05] MEDS ORDERED: EPOETIN ALFA (10,000 UNIT) 10,000 UNIT/ML VIAL SQ ONE (15:00)
[2017-12-05] MEDS: IV NS 0.9% 250 ML IV PRN (20:56)
[2017-12-06] MEDS: CEFEPIME 1 GM in IV D5W 50 ML IV SCH (00:31)
[2017-12-06] MEDS: MUPIROCIN OINT 2% 22 GM TUBE TP SCH ×3 (03:49→15:30)
[2017-12-06] MEDS: BLOOD SUGAR DIAGNOSTIC 1 EACH STRIP IN SCH ×4 (05:32→23:44)
[2017-12-06] MEDS: METOCLOPRAMIDE HCL 10 MG TABLET PO SCH ×4 (05:32→23:44)
[2017-12-06] MEDS ORDERED: ANESTHESIA TRAY IN PYXIS 1 EA TRAY MC ONE (06:14)
[2017-12-06] MEDS ORDERED: LIDOCAINE 1% INJ 50 ML MDV IJ ONE (06:31)
[2017-12-06] MEDS ORDERED: FENTANYL PF 100MCG/2ML AMPUL ONE (07:02)
[2017-12-06] MEDS ORDERED: ROCURONIUM BROMIDE 50 MG/5 ML ONE (07:02)
[2017-12-06] MEDS: SUCRALFATE 1 G/10 ML UDC GT SCH ×4 (07:30→21:10)
[2017-12-06] MEDS: ALLOPURINOL 100 MG TABLET PO SCH (09:00)
[2017-12-06] MEDS: PANTOPRAZOLE 40 MG VIAL IV SCH ×2 (09:51→17:33)
[2017-12-06] MEDS: HYDROCORTISONE SOD SUCCINATE 100 MG/2 ML VIAL IV SCH ×3 (09:51→17:33)
[2017-12-06] MEDS: SILVER SULFADIAZINE CREAM 25 GM TUBE TP SCH (09:53)
[2017-12-06] MEDS: NEPRO 1,000 ML BOTTLE GT PRN (17:32)
[2017-12-06] MEDS: FLUCONAZOLE (100 MG) 100 MG TABLET PO SCH (17:33)
[2017-12-06] MEDS: INSULIN REGULAR, HUMAN 100 UNIT/ML 3 ML VIAL SQ PRN ×2 (17:36→23:42)
[2017-12-07] MEDS: CEFEPIME 1 GM in IV D5W 50 ML IV SCH (00:27)
[2017-12-07] MEDS: MUPIROCIN OINT 2% 22 GM TUBE TP SCH ×3 (03:51→16:06)
[2017-12-07] MEDS: METOCLOPRAMIDE HCL 10 MG TABLET PO SCH ×3 (05:48→16:54)
[2017-12-07] MEDS: INSULIN REGULAR, HUMAN 100 UNIT/ML 3 ML VIAL SQ PRN ×3 (06:17→18:28)
[2017-12-07] MEDS: BLOOD SUGAR DIAGNOSTIC 1 EACH STRIP IN SCH ×3 (06:23→18:27)
[2017-12-07] MEDS: ALLOPURINOL 100 MG TABLET PO SCH (08:12)
[2017-12-07] MEDS: HYDROCORTISONE SOD SUCCINATE 100 MG/2 ML VIAL IV SCH ×3 (08:12→16:39)
[2017-12-07] MEDS: FLUCONAZOLE (100 MG) 100 MG TABLET PO SCH (08:12)
[2017-12-07] MEDS: PANTOPRAZOLE 40 MG VIAL IV SCH ×2 (08:12→16:39)
[2017-12-07] MEDS: SUCRALFATE 1 G/10 ML UDC GT SCH ×4 (08:12→21:33)
[2017-12-07] MEDS: SILVER SULFADIAZINE CREAM 25 GM TUBE TP SCH (08:15)
[2017-12-07] MEDS ORDERED: EPOETIN ALFA (10,000 UNIT) 10,000 UNIT/ML VIAL IV ONE (15:00)
[2017-12-07] MEDS ORDERED: Hydrocortisone Sod Succinate IV (17:24)
[2017-12-07] MEDS ORDERED: Nepro GT (17:24)
[2017-12-07] MEDS ORDERED: FLUC100T8 PO (17:24)
[2017-12-07] MEDS ORDERED: SUCR1ORA6 GT (17:24)
[2017-12-07] MEDS ORDERED: LORA2VIA11 IV (17:24)
[2017-12-07] MEDS ORDERED: PANT40VI IV (17:24)
[2017-12-07] MEDS ORDERED: METO10TA3 PO (17:24)
[2017-12-07] MEDS ORDERED: INSU100V28 SQ (17:24)
[2017-12-07] MEDS: NEPRO 1,000 ML BOTTLE GT PRN (18:27)
[2017-12-07] MEDS: IV NS 0.9% 250 ML IV PRN (18:27)
[2017-12-07] MEDS ORDERED: MICAFUNGIN SODIUM 100 MG in IV NS 0.9% 100 ML IV SCH (20:00)
[2017-12-08] MEDS: METOCLOPRAMIDE HCL 10 MG TABLET PO SCH ×4 (00:53→17:42)
[2017-12-08] MEDS: BLOOD SUGAR DIAGNOSTIC 1 EACH STRIP IN SCH ×4 (00:57→18:09)
[2017-12-08] MEDS: INSULIN REGULAR, HUMAN 100 UNIT/ML 3 ML VIAL SQ PRN ×4 (00:58→18:10)
[2017-12-08] MEDS: MUPIROCIN OINT 2% 22 GM TUBE TP SCH ×5 (06:02→16:16)
[2017-12-08] MEDS: SUCRALFATE 1 G/10 ML UDC GT SCH ×3 (09:32→16:31)
[2017-12-08] MEDS: ALLOPURINOL 100 MG TABLET PO SCH (09:32)
[2017-12-08] MEDS: HYDROCORTISONE SOD SUCCINATE 100 MG/2 ML VIAL IV SCH ×3 (09:32→16:28)
[2017-12-08] MEDS: PANTOPRAZOLE 40 MG VIAL IV SCH ×2 (09:32→16:28)
[2017-12-08] MEDS: SILVER SULFADIAZINE CREAM 25 GM TUBE TP SCH (11:29)
== END 2017-12-08 18:30 | disposition short-term general hospital (02) | DRG 3 ==
DX: A41.9 Sepsis, unspecified organism (principal); R65.21 Severe sepsis with septic shock; J69.0 Pneumonitis due to inhalation of food and vomit; G93.41 Metabolic encephalopathy; E43 Unspecified severe protein-calorie malnutrition; J15.6 Pneumonia due to other Gram-negative bacteria; J96.21 Acute and chronic respiratory failure with hypoxia; J90 Pleural effusion, not elsewhere classified; J96.01 Acute respiratory failure with hypoxia; N18.6 End stage renal disease; L02.211 Cutaneous abscess of abdominal wall; L03.115 Cellulitis of right lower limb; E87.2 Acidosis; I13.11 Hypertensive heart and chronic kidney disease without heart failure, with stage 5 chronic kidney disease, or end stage renal disease; L03.116 Cellulitis of left lower limb; E87.1 Hypo-osmolality and hyponatremia; I48.92 Unspecified atrial flutter; M48.56XA Collapsed vertebra, not elsewhere classified, lumbar region, initial encounter for fracture; J93.9 Pneumothorax, unspecified; D69.59 Other secondary thrombocytopenia; E11.22 Type 2 diabetes mellitus with diabetic chronic kidney disease; E83.42 Hypomagnesemia; Z99.2 Dependence on renal dialysis; Z93.3 Colostomy status; Z93.1 Gastrostomy status; Z93.0 Tracheostomy status; D53.9 Nutritional anemia, unspecified; M85.9 Disorder of bone density and structure, unspecified; R13.10 Dysphagia, unspecified; E11.621 Type 2 diabetes mellitus with foot ulcer; I48.91 Unspecified atrial fibrillation; E83.51 Hypocalcemia; K21.9 Gastro-esophageal reflux disease without esophagitis; E53.8 Deficiency of other specified B group vitamins; E66.9 Obesity, unspecified; Z68.31 Body mass index [BMI] 31.0-31.9, adult; S81.802A Unspecified open wound, left lower leg, initial encounter; S81.801A Unspecified open wound, right lower leg, initial encounter; X58.XXXA Exposure to other specified factors, initial encounter; Y92.9 Unspecified place or not applicable; I70.0 Atherosclerosis of aorta; K43.9 Ventral hernia without obstruction or gangrene; K29.70 Gastritis, unspecified, without bleeding; Z68.30 Body mass index [BMI] 30.0-30.9, adult; Z22.322 Carrier or suspected carrier of Methicillin resistant Staphylococcus aureus; Y95 Nosocomial condition